=== PATIENT | male | born 1980 | race Asian ===

== ENCOUNTER 2017-05-23 13:38 | Emergency (ER) | payer OTHER ==
[~2017-05-23] VITALS: Ht 185.4 cm; Wt 65.8 kg
[2017-05-23 14:20] VITALS: BP 114/76; TEMP 97.4
[2017-05-23 15:04] LABS: PLATELET COUNT 231 K/uL (142-355)
[2017-05-23 15:18] LABS: POTASSIUM 3.6 mmol/L (3.6-5.2); SODIUM 140 mmol/L (136-145)
== END 2017-05-23 15:35 | disposition home or self-care (01) ==
LOC: ED 13:38
PROVIDERS: Family Medicine
DX: R30.0 Dysuria (principal); S39.012A Strain of muscle, fascia and tendon of lower back, initial encounter
CPT/HCPCS: 36415; 80053; 81000; 82550; 85027; 96360; 99284; J1885

== ENCOUNTER 2017-10-10 15:29 | Emergency (ER) | payer OTHER ==
[~2017-10-10] VITALS: Ht 182.9 cm; Wt 72.6 kg
[2017-10-10 16:14] LABS: PLATELET COUNT 243 K/uL (142-355)
[2017-10-10 16:21] LABS: POTASSIUM 3.6 mmol/L (3.6-5.2)
[2017-10-10 16:57] VITALS: BP 129/73; TEMP 98.3
== END 2017-10-10 16:57 | disposition home or self-care (01) ==
LOC: ED 15:29
PROVIDERS: Family Medicine
DX: G43.909 Migraine, unspecified, not intractable, without status migrainosus (principal)
CPT/HCPCS: 36415; 80048; 85027; 99283

== ENCOUNTER 2017-12-21 16:59 | Outpatient (CLI) | payer OTHER | END 2017-12-21 17:01 | disposition short-term general hospital (02) | LOC: AMB 16:59 | DX: R07.89 Other chest pain (principal) | CPT/HCPCS: A0425; A0427 ==

== ENCOUNTER 2017-12-21 17:09 | Emergency (ER) | payer OTHER ==
[~2017-12-21] VITALS: Ht 182.9 cm; Wt 68.9 kg
[2017-12-21 17:34] LABS: PLATELET COUNT 256 K/uL (142-355)
[2017-12-21 17:40] LABS: POTASSIUM 3.7 mmol/L (3.6-5.2); SODIUM 134 mmol/L (136-145)
== END 2017-12-21 18:50 | disposition home or self-care (01) ==
LOC: ED 17:09
DX: R07.89 Other chest pain (principal); F12.10 Cannabis abuse, uncomplicated; I49.8 Other specified cardiac arrhythmias
CPT/HCPCS: 80053; 80307; 81000; 84484; 85027; 85651; 93005; 99283